=== PATIENT | male | born 1995 | race Caucasian/White ===

== ENCOUNTER 2023-05-11 15:40 | Emergency (ER) | payer SELFPAY ==
[~2023-05-11] VITALS: Ht 167.6 cm; Wt 68.0 kg
[2023-05-11 16:01] VITALS: O2SAT 97
[2023-05-11 18:40] VITALS: BP 109/57; PULSE 96; RESP 16; TEMP 97.8
== END 2023-05-11 18:49 | disposition home or self-care (01) ==
LOC: EDBD 15:40 → ER 15:40
DX: F10.129 Alcohol abuse with intoxication, unspecified (principal); F19.90 Other psychoactive substance use, unspecified, uncomplicated; Y90.9 Presence of alcohol in blood, level not specified; Z98.890 Other specified postprocedural states
CPT/HCPCS: 82962; 99284